=== PATIENT | male | born 1935 | race Caucasian/White ===

== ENCOUNTER 2021-03-28 07:36 | Emergency (ER) | payer MEDICARE, BC, SELFPAY ==
[2021-03-28] VITALS (22 sets, daily range): BP systolic 159–182; BP diastolic 72–105; PULSE 49–63; RESP 13–23; TEMP 36.9; O2SAT 96–98
--- NOTE | ~2021-03-28 | XR_ITS ---
XR chest 2V 03/28/2021 07:53 Indication: Left-sided chest pain Procedure: 2 view chest Comparison: No prior studies for comparison Findings: That is post median sternotomy for CABG. Left basilar airspace disease. Calcified granuloma s in the right midlung. Small left pleural effusion. No acute osseous abnormality. Impression: 1: Left basilar airspace disease which may represent pneumonia and/or atelectasis. Reviewed, dictated and finalized at location A. Impression: 1: Left basilar airspace disease which may represent pneumonia and/or atelectas is.
--- NOTE | 2021-03-28 07:38 | ECG_ITS ---
Measurements Intervals [place] Rate: 56 P: 20 ID: [id number] QRS: 28 QRSD: 93 T: 73 QT: 394 QTc: 381 Interpretive Statements SINUS BRADYCARDIA CONSIDER INFERIOR INFARCT, AGE INDETERMINATE NONSPECIFIC ST & T-WAVE ABNORMALITY- ANT/HIGH LAT LEADS BASELINE ARTIFACT- I, II, III, AVR, AVF ABNORMAL ECG Electronically Signed On 03-28-2021 8:23:48 CDT by Nicholas Johns D.O.
[2021-03-28 07:54] LABS: Basophils Percent Auto 0.6 % (0.2-1.2); Eosinophils Absolute Auto 0.2 K/mm3 (0-0.3); Eosinophils Percent Auto 2.3 % (0-4.4); Hematocrit 39.3 % (42.0-52.0); Immature Granulocyte Absolute 0.04 K/mm3 (0.00-0.031); Immature Granulocyte Percent A 0.6 % (0-0.5); Lymphocytes Absolute Auto 1.16 K/mm3 (0.9-3.2); Lymphocytes Percent Auto 17.7 % (18.3-44.2); Mean Corpuscular HGB Conc 33.1 g/dl (32-36); Mean Corpuscular Hemoglobin 30.2 pg (26-34); Mean Corpuscular Volume 91.4 fl (80-100); Mean Platelet Volume 10.4 fl (7.4-10.4); Monocytes Absolute Auto 0.5 K/mm3 (0.1-0.6); Monocytes Percent Auto 7.3 % (2.6-8.5); Neutrophils Absolute Auto 4.7 K/mm3 (1.3-6.7); Neutrophils Percent Auto 71.5 % (45.5-73.1); Platelet Count Result 113 k/mm3 (150-375); Red Cell Distribution Width 13.3 % (11.5-14.5); White Blood Count 6.6 K/mm3 (4.5-10.0)
[2021-03-28 08:03] LABS: Prothrombin Time 13.5 Seconds (11.1-14.7)
[2021-03-28 08:04] LABS: Partial Thromboplastin Time 27.1 SECONDS (22.3-36.8)
[2021-03-28 08:07] LABS: Anion Gap 11 mmol/L (8-16); Blood Urea Nitrogen 46 mg/dL (9-20); Calcium 9.3 mg/dL (8.4-10.2); Carbon Dioxide 17 mmol/L (22-30); Chloride 109 mmol/L (98-107); Estimated CRCL calculation 21 ml/min; Estimated Glomerular Filt Rate 27; Glucose 111 mg/dL (65-110); Potassium 4.7 mmol/L (3.4-5.0); Sodium 137 mmol/L (137-145)
--- NOTE | 2021-03-28 08:14 | PC.NURSE ---
Per INES Kraft, no dose of aspirin needed.
--- NOTE | 2021-03-28 08:17 | ED.CHESTPAIN ---
HPI - Chest Pain General Chief Complaint: Chest Pain Stated Complaint: chest pain Time Seen by Provider: 03/28/21 07:39 History of Present Illness HPI narrative: Patient is an 85-year-old male who presents ER with burning left lateral chest wall pain. Ongoing since yesterday. Lasted throughout the day yesterday and into the evening. It was still present when he went to sleep and still present when he today. Reports discomfort increased after waking up so he opted to come here. Pain resolved as he entered the ER. No runny nose or sore throat or productive cough. No fevers or chills or sweats. No exertional shortness of breath or chest pain. Cannot describe any modifying factors for the discomfort. Reports he has been having similar pain for greater than 6 months but this lasted a little bit longer. He did not come to be checked out yesterday because he is currently in town from [place] for a family wedding that occurred yesterday. Patient has no calf pain or new lower extremity swelling. Related Data Home Medications Medication Instructions Recorded Confirmed allopurinol 100 mg PO DAILY 03/28/21 aspirin 325 mg PO DAILY 03/28/21 chlorthalidone 25 mg PO DAILY 03/28/21 doxazosin 8 mg PO DAILY 03/28/21 metoprolol succinate [Toprol XL] 50 mg PO DAILY 03/28/21 olmesartan 40 mg PO DAILY 03/28/21 omeprazole [Prilosec] 20 mg PO DAILY 03/28/21 Allergies Allergy/AdvReac Type Severity Reaction Status Date / Time No Known Allergies Allergy Verified 03/28/21 07:58 Review of Systems Review of Systems: All systems reviewed & are unremarkable except as noted in HPI and below Constitutional: Constitutional: Denies chills, Denies fever(s) and Denies weakness ENT: Denies nasal congestion and Denies sore throat Cardiovascular: Cardiovascular: Reports chest pain, Denies rapid heart rate and Denies radiating jaw, neck or arm pain Respiratory: Respiratory: Denies cough, Denies dyspnea and Denies wheezing Gastrointestinal: Gastrointestinal: Denies abdominal pain, Reports diarrhea (Ongoing for 2 days, feels it is related to eating fast food and traveling.), Denies nausea and Denies vomiting Musculoskeletal: Musculoskeletal: Denies back pain and Denies muscle cramps PMFSH Past Medical History Medical History (Updated 08/08/21 @ 10:14 by Sheldon Kraft MD) Coronary artery disease Hypertension Renal cancer Surgical History Surgical History (Updated 03/28/21 @ 08:18 by Sheldon Kraft MD) H/O left nephrectomy History of carotid endarterectomy History of percutaneous coronary intervention Hx of CABG Social History Social History (Updated 03/28/21 @ 08:18 by Sheldon Kraft MD) Smoking status: Never smoker Exam Narrative: GENERAL: Well-appearing, well-nourished, and in no acute distress. HEAD: Normocephalic, atraumatic. EYES: PERRL and EOMI. CHEST: Clear to auscultation. No respiratory distress. No reproducible chest wall pain. HEART: Regular rate and rhythm. Normal peripheral pulses. ABDOMEN: Soft, nontender, nondistended. EXTREMITIES: Normal range of motion. 1+ edema. SKIN: Warm, dry, no rash. NEURO: Alert and oriented x3. PSYCH: Normal mood and affect. Course Course Emergency Course: Patient informed of results. Reports creatinine usually runs between 1.8 and 2.0. Will give patient IV fluid as his BUN/creatinine ratio is elevated. Likely dry from traveling and diarrhea. Also discussed chest x-ray findings. Patient has no fevers or chills. He is without cough or shortness of breath. We will give him a prescription of azithromycin to fill should he develop those symptoms while driving back to [place]. Vital Signs Vital signs: Vital Signs Temperature 98.4 F 03/28/21 07:41 Pulse Rate 56 L 03/28/21 07:41 Respiratory Rate 18 03/28/21 07:41 Blood Pressure 159/105 H 03/28/21 07:41 Pulse Oximetry 98 03/28/21 07:41 Temperature 98.4 F 03/28/21 07:41 Pulse Rate 61 08/0
[2021-03-28 08:19] LABS: Troponin I < 0.012 ng/mL (0.000-0.034)
[2021-03-28] MEDS: SODIUM CHLORIDE 0.9% IV 1,000 ML 999 ML IV CONT (10:45)
[2021-03-28 11:51] LABS: Troponin I < 0.012 ng/mL (0.000-0.034)
== END 2021-03-28 11:56 | disposition home or self-care (01) ==
PROVIDERS: Emergency Provider Emergency Medicine
DX: E86.0 Dehydration (principal); R07.9 Chest pain, unspecified; I10 Essential (primary) hypertension; I25.10 Atherosclerotic heart disease of native coronary artery without angina pectoris
CPT/HCPCS: 36415; 71046; 80048; 84484; 85025; 85610; 85730; 93005; 96360; 99284; J7030